=== PATIENT | female | born 1995 | race Caucasian/White ===

== ENCOUNTER 2021-12-01 18:35 | Emergency (ER) | payer MEDICAID ==
[~2021-12-01] VITALS: Ht 172.7 cm; Wt 76.8 kg
[2021-12-01] MEDS ORDERED: ringers solution, lacted 1,000 ML IV ONE (20:55)
[2021-12-01 21:18] LABS: BASOPHILS % (AUTO) 0.7 % (0-1); EOSINOPHILS # (AUTO) 0.1 X10'3 (0-0.9); EOSINOPHILS % (AUTO) 1.1 % (0-6); HEMATOCRIT 40.1 % (35.0-45.0); HEMOGLOBIN 13.6 g/dl (12.0-16.0); LYMPHOCYTES # (AUTO) 2.2 X10'3 (1.1-4.8); MEAN CORPUSCULAR HEMOGLOBIN 30.2 PG (27.0-31.0); MEAN CORPUSCULAR HGB CONC 33.9 g/dL (33.0-36.5); MEAN CORPUSCULAR VOLUME 89.1 FL (78-98); MEAN PLATELET VOLUME 8.1 FL (7.4-10.4); MONOCYTES # (AUTO) 0.5 X10'3 (0-0.9); MONOCYTES % (AUTO) 6.4 % (2-12); NEUTROPHILS # (AUTO) 4.5 X10'3 (1.8-7.7); NEUTROPHILS % (AUTO) 61.8 % (42-75); PLATELET COUNT 250 X10'3 (140-440); RED CELL DISTRIBUTION WIDTH 13.2 % (11.5-14.5); WHITE BLOOD COUNT 7.3 X10'3 (4.5-11.0)
[2021-12-01 21:32] LABS: ALANINE AMINOTRANSFERASE 29 U/L (12-78); ALBUMIN 4.1 G/DL (3.4-5.0); ALBUMIN/GLOBULIN RATIO 1.1 (1.1-1.5); ALKALINE PHOSPHATASE 63 IU/L (46-116); ANION GAP 7 (8-16); ASPARTATE AMINO TRANSFERASE 25 U/L (10-37); BILIRUBIN,TOTAL 0.2 MG/DL (0.1-1.0); BLOOD UREA NITROGEN 16 MG/DL (7-18); BUN/CREATININE RATIO 21.3 (6.6-38.0); CALCIUM 8.9 MG/DL (8.5-10.1); CHLORIDE 103 MMOL/L (99-107); CREATININE 0.75 MG/DL (0.40-0.90); GLUCOSE 81 MG/DL (70-104); POTASSIUM 3.8 MMOL/L (3.5-5.1); SODIUM 139 MMOL/L (135-145); TOTAL CARBON DIOXIDE 29.1 MMOL/L (24-32); TOTAL PROTEIN 7.9 G/DL (6.4-8.2); eGFR > 90 ML/MIN
--- NOTE | 2021-12-01 21:42 | NUR ---
Attempted IV three times - patient stated that this is a regular occurence for her.
[2021-12-01 21:59] VITALS: BP 112/68
== END 2021-12-01 22:00 | disposition home or self-care (01) ==
LOC: ER 18:36
DX: E86.0 Dehydration (principal); R42 Dizziness and giddiness
CPT/HCPCS: 36415; 80053; 85025; 99283; J7120

== ENCOUNTER 2022-02-02 07:14 | Outpatient (CLI) | payer BC ==
[~2022-02-02] VITALS: Ht 168.9 cm; Wt 82.6 kg
[2022-02-02] MEDS ORDERED: albuterol 2.5 MG/3 ML nebule NEB ONE (08:05)
== END 2022-02-02 23:59 | disposition home or self-care (01) ==
LOC: RT 07:14
PROVIDERS: ATTEND Physician Assistant
DX: R94.2 Abnormal results of pulmonary function studies (principal); J98.4 Other disorders of lung; J45.40 Moderate persistent asthma, uncomplicated; Z87.891 Personal history of nicotine dependence; Z79.899 Other long term (current) drug therapy
CPT/HCPCS: 94060; 94760

== ENCOUNTER → 2023-09-01 | Outpatient (CLI) | payer MEDICAID ==
[~2023-09-01] VITALS: Ht 167.6 cm; Wt 101.6 kg
[2023-09-01] MEDS: albuterol 2.5 MG/3 ML nebule NEB PRN (09:52)
[2023-09-01 09:53] VITALS: PULSE 85; RESP 16; O2SAT 0
== END | disposition home or self-care (01) ==
LOC: RT 09:04
PROVIDERS: ATTEND Physician Assistant
DX: J45.40 Moderate persistent asthma, uncomplicated (principal); R94.2 Abnormal results of pulmonary function studies
CPT/HCPCS: 94060; 94729; 94760